=== PATIENT | female | born 1970 | race Caucasian/White ===

== ENCOUNTER 2018-01-01 16:59 | Emergency (ER) | payer OTHER ==
[~2018-01-01] VITALS: Ht 172.7 cm; Wt 77.1 kg
[2018-01-01] MEDS ORDERED: ONDANSETRON HCL 4 MG/2 ML VIAL ONE (17:49)
[2018-01-01 17:58] VITALS: BP 132/82
[2018-01-01] MEDS ORDERED: ONDANSETRON HCL 4 MG/2 ML VIAL IV ONE (18:00)
[2018-01-01] MEDS ORDERED: IOHEXOL 300 MG/ML 100ML BOTTLE IJ ONE (18:02)
[2018-01-01 19:35] LABS: Basophils # (auto) 0.1 uL; Eosinophils # (auto) 0 uL; Eosinophils % (auto) 0.4 % (0.0-7.0); Hematocrit 37.7 % (36.0-46.0); Hemoglobin 12.8 g/dL (12.2-16.2); Lymphocytes # (auto) 1.6 uL; Lymphocytes % (auto) 21.8 % (10.0-50.0); Mean Corpuscular Hemoglobin 30.1 pg (28.0-32.0); Mean Corpuscular Hgb Conc. 33.9 g/dL (32.0-36.0); Mean Corpuscular Volume 88.6 fL (80.0-100.0); Monocytes # (auto) 0.5 uL; Monocytes % (auto) 7.2 % (0.0-12.0); Neutrophils % (auto) 69.6 % (37.0-80.0); Nucleated Red Blood Cells % 0.1 %; Platelet Count (auto) 247 10^3/uL (140-450); Red Blood Cells 4.25 10^6/uL (4.0-5.20); Red Cell Distribution Width 13.7 % (11.8-14.3); White Blood Cell 7.2 10^3/uL (4.4-10.8)
[2018-01-01 20:02] LABS: Alanine Aminotransferase 20 U/L (13-56); Amylase 74 U/L (25-115); Anion Gap 9 (5-15); Aspartate Aminotransferase 20 U/L (15-37); Blood Urea Nitrogen 17 mg/dL (7-18); Calcium 7.4 mg/dL (8.5-10.1); Carbon Dioxide 17 mmol/L (21-32); Chloride 113 mmol/L (98-107); GFR African American 98 mL/min; GFR Non-African American 81 mL/min; Glucose 82 mg/dL (74-106); Lipase 180 U/L (73-393); Magnesium 2.1 mg/dL (1.6-2.6); Potassium 3.6 mmol/L (3.5-5.1); Sodium 139 mmol/L (136-145)
[2018-01-01 20:06] LABS: Alkaline Phosphatase 94 U/L (45-117); Bilirubin, Total 0.3 mg/dL (0.2-1.0); Total Protein 7.8 g/dL (6.4-8.2)
== END 2018-01-01 20:56 | disposition home or self-care (01) ==
LOC: ER 16:59
DX: S20.219A Contusion of unspecified front wall of thorax, initial encounter (principal); S40.021A Contusion of right upper arm, initial encounter; R11.2 Nausea with vomiting, unspecified; R10.9 Unspecified abdominal pain; Z88.0 Allergy status to penicillin; V43.32XA Unspecified car occupant injured in collision with other type car in nontraffic accident, initial encounter; Y93.89 Activity, other specified; Y92.89 Other specified places as the place of occurrence of the external cause; Y99.8 Other external cause status
CPT/HCPCS: 36415; 71260; 73060; 74177; 80053; 82150; 83690; 83735; 84484; 84702; 85025; 93005; 96374; 99285; J2405; Q9967